=== PATIENT | female | born 1955 | race Caucasian/White ===

== ENCOUNTER → 2021-02-19 | Outpatient (CLI) | payer MEDICARE ==
[~2021-02-19] MED LIST: ASPIRIN CHEWABL81 MG PO; AUGMENTIN 875-1 EACH PO; CELEXA40 MG PO; FLEXERIL 10 MG10 MG PO; LASIX40 MG PO; LIPITOR TAB 2020 MG PO; LISINOPRIL-HCT1 EAC2 PO; SYNTHROID125 MCG PO; Voltaren Gel 1 % TOP; ZETIA 10 MG TAB10 MG PO
== END ==
LOC: MAMO 08:00
DX: Z12.31 Encounter for screening mammogram for malignant neoplasm of breast (principal)
CPT/HCPCS: 77063; 77067

== ENCOUNTER 2021-03-24 18:15 | Emergency (ER) | payer MEDICARE, OTHER | END 2021-03-24 20:15 | disposition home or self-care (01) | LOC: ER1 18:15 | DX: S90.512A Abrasion, left ankle, initial encounter (principal); I10 Essential (primary) hypertension; Z90.710 Acquired absence of both cervix and uterus; Z90.89 Acquired absence of other organs; Z88.0 Allergy status to penicillin; Z88.6 Allergy status to analgesic agent; Z88.5 Allergy status to narcotic agent; Z85.850 Personal history of malignant neoplasm of thyroid; Z90.49 Acquired absence of other specified parts of digestive tract; W20.8XXA Other cause of strike by thrown, projected or falling object, initial encounter | CPT/HCPCS: 73610; 73630; 99283 ==

== ENCOUNTER → 2021-06-29 | Outpatient (CLI) | payer MEDICARE ==
[2021-06-30 08:14] LABS: RHEUMATOID ARTHRITIS FACTOR 12.9 IU/mL (0.0-13.9)
[2021-06-30 12:14] LABS: RNP ANTIBODIES 0.2 AI (0.0-0.9); SJOGREN'S ANTI-SS-A 0.4 AI (0.0-0.9); SJOGREN'S ANTI-SS-B <0.2 AI (0.0-0.9); SMITH ANTIBODIES 0.2 AI (0.0-0.9)
== END ==
LOC: LAB 12:29
PROVIDERS: Internal Medicine
DX: M19.042 Primary osteoarthritis, left hand (principal); M19.041 Primary osteoarthritis, right hand; R76.8 Other specified abnormal immunological findings in serum
CPT/HCPCS: 36415; 73130; 82728; 83520; 85652; 86140; 86200; 86235; 86431